=== PATIENT | female | born 1930 | race Hispanic/Latino ===

== ENCOUNTER 2016-09-11 09:32 | Outpatient (CLI) | payer MEDICARE ==
--- NOTE | 2016-09-11 10:19 | XRay Report ---
Right wrist, right-hand: Trauma, pain. There is a transverse fracture with slight separation of fragments involving the distal radius. There is a slightly displaced posterior fragment. Calcified cartilage of is identified in the proximal row of carpal bones. Degenerative changes also involve the greater multangular bone with significant narrowing of the articulation with the first metacarpal. There is no fracture of the hand however there are significant degenerative changes predominantly affecting the third MP joint as well as the second through fifth DIP joints and fifth PIP joint. There is a subchondral cyst of the proximal phalanx involving the second PIP joint as well as the base of the fifth metacarpal. The bones are generally demineralized in the wrist and hand. Impressions: 1. Radius fracture. 2. 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
== END 2016-09-11 09:33 | disposition home or self-care (01) ==
LOC: SPVIMAG 09:32
PROVIDERS: ATTEND Internal Medicine
DX: S52.501A Unspecified fracture of the lower end of right radius, initial encounter for closed fracture (principal); M13.841 Other specified arthritis, right hand; M13.831 Other specified arthritis, right wrist; M85.48 Solitary bone cyst, other site; X58.XXXA Exposure to other specified factors, initial encounter; Y93.89 Activity, other specified; Y92.89 Other specified places as the place of occurrence of the external cause; Y99.8 Other external cause status

== ENCOUNTER 2018-05-28 12:37 | Outpatient (CLI) | payer MEDICARE ==
--- NOTE | 2018-05-28 14:30 | XRay Report ---
LEFT HIP, 2 views: History: Left hip pain, chronic Osteopenia is evident. There is normal articulation of the left hip. No evidence for fracture, osteonecrosis or dislocation. No significant degenerative changes are identified. IMPRESSION: Osteopenia. No significant joint pathology.
== END 2018-05-28 12:38 | disposition home or self-care (01) ==
LOC: XRAY 12:37
PROVIDERS: ATTEND Internal Medicine
DX: M85.88 Other specified disorders of bone density and structure, other site (principal)